=== PATIENT | male | born 1990 ===

== ENCOUNTER 2019-09-18 16:17 | Emergency (ER) | payer SELFPAY ==
[2019-09-18 17:01] VITALS: BP 110/73
[2019-09-18] MEDS ORDERED: Ibuprofen TAB* 600 MG PO ONE (17:09)
[2019-09-18] MEDS ORDERED: Acetaminophen TAB* 325 MG PO ONE (17:28)
--- NOTE | 2019-09-18 17:31 | UC ---
Elbow Pain - HPI Summary HPI Summary: 23 y/o [place] speaking male presents to the urgent care c/o RT elbow and forearm pain s/p injury w/ a farm gate today around 1430pm. 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 He was trying to guide the cow through the gate when she got scare push the gate against his RT elbow and arm right arm injury , possible crush injury to right lower arm, elbow and upper arm from device at farm that removes cows hooves. Pt with skin abraion to inner aspect of right arm. distal hand fweels "thick and heavy." distal pulses strong. - History of Current Complaint Chief Complaint: UCUpperExtremity Stated Complaint: ARM INJURY Time Seen by Provider: 09/18/19 17:20 Hx Obtained From: Patient Onset/Duration: Traumatic Pain Intensity: 8 - Allergies/Home Medications Allergies/Adverse Reactions: Allergies Allergy/AdvReac Type Severity Reaction Status Date / Time No Known Allergies Allergy Verified 09/18/19 16:56 Home Medications: Home Medications Bacitracin OINTMENT* 1 applic TOPICAL BID #1 tube 09/18/19 [Rx] Ibuprofen TAB* [Motrin TAB* 800 MG] 800 mg PO Q6H PRN #30 tab 09/18/19 [Rx] PMH/Surg Hx/FS Hx/Imm Hx - Surgical History Surgical History: None - Social History Alcohol Use: None Substance Use Type: None Smoking Status (MU): Never Smoked Tobacco Physical Exam Vital Signs: Initial Vital Signs Temp 99.0 F 09/18/19 16:57 Pulse 75 09/18/19 16:57 Resp 16 09/18/19 16:57 BP 110/73 09/18/19 16:57 Pulse Ox 99 09/18/19 16:57 Elbow Pain Course/Dx - Course Course Of Treatment: Vital Signs Reviewed: Yes General: well developed, well nourished male sitting in the examining table w/o any apparent distress. Eyes: Positive: Conjunctiva Clear - PERRLA, EOMI, ENT: Positive: Normal ENT inspection, Hearing grossly normal, Pharynx normal, TMs normal - B/L, Uvula midline Neck: Positive: Supple, Nontender, No Lymphadenopathy Respiratory: Positive: Chest non-tender, Lungs clear, Normal breath sounds, No respiratory distress, No accessory muscle use Cardiovascular: Positive: RRR, No Murmur, Pulses Normal, Brisk Capillary Refill Abdomen Description: Positive: Nontender, No Organomegaly, Soft. Negative: CVA Tenderness (R), CVA Tenderness (L) Bowel Sounds: Positive: Present Musculoskeletal: Positive: Strength Intact, RT Elbow: The R elbow is with mild deformity on the lateral side when compared to the L elbow. No obvious surface trauma, ecchymosis, mild soft tissue swelling. Point tenderness to palpation of the lateral or medial epicondyle, olecranon,and radial head. No epicondylar or axillary lymphadenopathy. Decreased ROM due to pain. Muscle strength. Intact motor and sensation of ulnar, median, and radial nerves. Neurological: Positive: Alert, Muscle Tone Normal Psychological Exam: Normal Skin Exam: Normal - Differential Dx/Diagnosis Differential Diagnosis/HQI/PQRI: Abrasion, Contusion, Fracture (Closed), Fracture (Open), Sprain, Strain, Tendonitis, Other - compartment syndrome Provider Diagnosis: Injury of right elbow, Sprain of elbow, right, Elbow abrasion, non-infected Discharge ED - Sign-Out/Discharge Documenting (check all that apply): Patient Departure - D/C home All imaging exams completed and their final reports reviewed: Yes - Discharge Plan Condition: Stable Disposition: HOME Prescriptions: Bacitracin OINTMENT* 1 applic TOPICAL BID #1 tube Ibuprofen TAB* [Motrin TAB* 800 MG] 800 mg PO Q6H PRN #30 tab PRN Reason: moderate pain Patient Education Materials: Compartment Syndrome (DC), Elbow Sprain (ED) Print Language: LIBYAN Forms: *Work Release Referrals: [facility] [Outside] - 1 Week Devonte Plummer MD [Medical Doctor] - 2 Days Additional Instructions: 1- Por favor tome Ibuprofeno 800mg PO cada 6-87hrs despues de comidas para el dolor y la inflamacion. Puede alternar con Tylenol PO 500mg si el dolor persiste. 2- Continue applicando hielo y mantenga el codo inmobilizado con la fuchs in el sling. Evite alzar cosas pessadas or ejercisions con woodson brazo derecho. 3-* Por favor observed tracey simptomas q no vaya a desarrollar Syndrome de comportimiento ( Compartment syndrome) nat se le explico, Si desarrola dolor gely, entumecimiento del brazo y no lo puede house mover o esta muy frio por favor vaya inmediatemente a la emergencia de [place] para q sea tratado. [place] es wendy emergencia. 4- Aplique Bacitracin en la abrasion del codo nat se le indico 2 veces al luz elena. Si desarrola signos de infection: fiebre, dolor, inflamacion o pus por favor regrese a la clinica o jesse woodson Medico primario. 5- Por favir jesse al Orthopedista Dr Plummer in 2-3 shirley para q le examine. Usted puede tener trauma en los ligamentos del codo 1-Please continue taking Ibuprofen PO q6-8hrs prn after PO w4-6hrs prn as directed to alleviate pain and swelling. 2-Please apply ice, keep your elbow immobilized with the splint. Avoid strenuous exercise of heavy lifting 3- Please f/u with Orthopedic DR Carlos in 1-2 days for further evaluation and treatment. - Billing Disposition and Condition Condition: STABLE Disposition: Home
== END 2019-09-18 19:00 | disposition home or self-care (01) ==
LOC: UCEAST 16:17 → EDBD 16:17 → UCEAST 19:00
DX: S53.401A Unspecified sprain of right elbow, initial encounter (principal); S50.311A Abrasion of right elbow, initial encounter; W22.8XXA Striking against or struck by other objects, initial encounter; Y92.9 Unspecified place or not applicable
CPT/HCPCS: 99203; A9270-GY; G0463